=== PATIENT | male | born 1950 | race African-American/Black ===

== ENCOUNTER 2016-10-01 06:24 | Day surgery (SDC) | payer MEDICARE, OTHER ==
[2016-10-01] VITALS (9 sets, daily range): BP systolic 94–142; BP diastolic 49–84; PULSE 87–110; RESP 18–20; TEMP 98–98.2; O2SAT 92–99
[~2016-10-01] VITALS: Ht 180.3 cm; Wt 94.5 kg
[~2016-10-01 06:24] MED LIST: BUTO10SO; EXEN5PEN SQ; FLECTOR TOP; LANTUSP SQ; LIDO5T; LOTR5CAP3 PO; LYRI200C PO; OMEG1CAP53 PO; OMEP20TA PO; SPIR50TA21 PO; TESTIM; TOPR25TA2 PO; TRIA.1%T TOP
[2016-10-01] MEDS ORDERED: SODIUM CHLOR 0.9% 1000 ML IV SCH (06:45)
[2016-10-01] MEDS ORDERED: SODIUM CHLORIDE 0.9% FLUSH 10 ML FLUSH IV FLUSH PRN ×2 (06:45)
[2016-10-01] MEDS ORDERED: EMPA1TAB3 PO (06:51)
[2016-10-01] MEDS ORDERED: THIA100T PO (06:51)
[2016-10-01] MEDS ORDERED: LINA290C PO (06:51)
[2016-10-01] MEDS ORDERED: MIRT1TAB PO (06:51)
[2016-10-01] MEDS ORDERED: AMLO10CA PO (06:51)
[2016-10-01] MEDS ORDERED: LANTINJ SQ (06:51)
[2016-10-01] MEDS ORDERED: VENL75TA PO (06:51)
[2016-10-01] MEDS ORDERED: VIAG100T PO (06:51)
[2016-10-01] MEDS ORDERED: ASPI-119 PO (06:51)
[2016-10-01] MEDS ORDERED: BUTO10SO NASAL (06:51)
[2016-10-01] MEDS ORDERED: ACAM1TAB5 PO (06:51)
[2016-10-01] MEDS ORDERED: NEXI40CA PO (06:51)
[2016-10-01] MEDS ORDERED: FOLI1TAB4 PO (06:51)
[2016-10-01] MEDS ORDERED: [UNRECOGNIZED DRUG - CODE] TOPICAL (06:51)
[2016-10-01] MEDS ORDERED: ERGO1CAP10 PO (06:51)
[2016-10-01] MEDS ORDERED: METO25TA3 PO (06:51)
[2016-10-01] MEDS ORDERED: FLUO0.05 TOPICAL (06:51)
[2016-10-01] MEDS ORDERED: ALA1CRE2 TOPICAL (06:51)
[2016-10-01] MEDS ORDERED: LYRI200C PO (06:51)
[2016-10-01] MEDS ORDERED: EZET1TAB8 PO (06:51)
[2016-10-01] MEDS ORDERED: LIDOCAINE 1%/EPINEPHrine 1:100,000 SOLN 20 ML VIAL ONE (07:37)
[2016-10-01] MEDS ORDERED: fentaNYL CITRATE 250 MCG/5 ML AMP ONE (07:55)
[2016-10-01] MEDS ORDERED: MIDAZOLAM HCL 5 MG/5 ML VIAL ONE (07:55)
--- NOTE | 2016-10-01 09:05 | RADRPT ---
EXAM DATE/TIME: 10/01/2016 08:02 [facility] COMPARISON: No previous studies available for comparison. INDICATIONS : Elevated liver enzymes. SEDATION TIME: 30 minutes BIOPSY SITE: Right MEDICATION(S): 1.) 2 mg midazolam (Versed) IV 2.) 100 mcg fentanyl (Sublimaze) IV DEVICE(S): 1.) 18 gauge BioPince needle MEDICAL HISTORY : Cardiovascular disease. Hypertension. Lupus. Diabetes, prostate cancer. SURGICAL HISTORY : Prostatectomy. ENCOUNTER: Initial ACUITY: 1 day PAIN SCORE: 0/10 LOCATION: Right A total of one core specimen(s) were obtained and sent to the laboratory for pathologic evaluation. PROCEDURE: 1. CT guided liver biopsy. 2. Conscious sedation with continuous EKG and oximetry monitoring. 3. EKG and oximetry remained stable throughout the procedure. Prior to the procedure informed consent was obtained. Any appropriate prior imaging studies were rev iewed. Using automated exposure control and adjustment of the mA and/or kV according to patient size, radiat ion dose was kept as low as reasonably achievable to obtain optimal diagnostic quality images. The site was prepped in a sterile fashion. Full sterile technique was used, including cap, mask, vivian rile gloves and gown and a large sterile sheet. Hand hygiene and 2% chlorhexidine and/or betadine/al cohol prep was utilized per protocol for cutaneous antisepsis. The skin and subcutaneous tissues wer e infiltrated with local anesthetic solution. With CT guidance the previously identified target was localized. Biopsy was performed using the presc ribed needle as above. Adequate hemostasis was obtained with compression at the puncture site. Follow-up CT scan reveals no hemorrhage. The patient tolerated the procedure well and there were no complications. The patient was returned to the Radiology Outpatient Unit in stable condition. CONCLUSION: Uncomplicated CT guided biopsy liver biopsy for function.. Ron Mathews MD FACR on October 01, 2016 at 8:30 Board Certified Radiologist. This report was verified electronically.
== END 2016-10-01 12:50 | disposition home or self-care (01) ==
LOC: HRAD 06:24 → HRIP 06:25 → HRAD 12:50
PROVIDERS: ATTEND Internal Medicine Gastroenterology
DX: R74.8 Abnormal levels of other serum enzymes (principal); K75.81 Nonalcoholic steatohepatitis (NASH); K74.60 Unspecified cirrhosis of liver; I10 Essential (primary) hypertension; M32.9 Systemic lupus erythematosus, unspecified; E11.9 Type 2 diabetes mellitus without complications; Z85.46 Personal history of malignant neoplasm of prostate
CPT/HCPCS: 47000; 77012; 88307; 88313; J2250; J3010; J7030

== ENCOUNTER 2017-08-25 20:04 | Observation (INO) | payer MEDICARE, OTHER ==
[~2017-08-25] VITALS: Ht 180.3 cm; Wt 91.4 kg
[2017-08-25 20:03] VITALS: O2SAT 98
[~2017-08-25 20:04] MED LIST changes: +ACAM1TAB5 PO; +ALA1CRE2 TOPICAL; +AMLO10CA PO; +ASPI-119 PO; -BUTO10SO; +BUTO10SO NASAL; +EMPA1TAB3 PO; +ERGO1CAP10 PO; -EXEN5PEN SQ; +EZET1TAB8 PO; +FLUO0.05 TOPICAL; +FOLI1TAB4 PO; +LANTINJ SQ; +LINA290C PO; -LOTR5CAP3 PO; +METO25TA3 PO; +MIRT1TAB PO; +NEXI40CA PO; -OMEG1CAP53 PO; -OMEP20TA PO; -SPIR50TA21 PO; +THIA100T PO; -TOPR25TA2 PO; -TRIA.1%T TOP; +VENL75TA PO; +VIAG100T PO; +[UNRECOGNIZED DRUG - CODE] TOPICAL
[2017-08-25 20:07] VITALS: BP 120/71; RESP 24; TEMP 98.8; O2SAT 94
[2017-08-25] MEDS ORDERED: SODIUM CHLOR 0.9% 1000 ML INJ 1,000 ML IV ONE (20:09)
[2017-08-25] MEDS ORDERED: ALTEPLASE DRIP IV ONE (20:15)
[2017-08-25] MEDS ORDERED: SODIUM CHLORIDE 0.9% 50 ML BAG IVF ONE (20:15)
[2017-08-25] MEDS ORDERED: ALTEPLASE BOLUS 9 MG/9 ML SYR IV ONE (20:15)
[2017-08-25] MEDS ORDERED: MISCELLANEOUS NURSING INFORMATION XX PRN (20:15)
[2017-08-25 20:30] VITALS: BP 133/73; PULSE 73
--- NOTE | 2017-08-25 20:30 | RADRPT ---
EXAM DATE/TIME: 08/25/2017 20:15 [facility] COMPARISON: No previous studies available for comparison. INDICATIONS : Stroke alert, right side weakness, right side facial droop and slurred speech. RADIATION DOSE: 37.66 CTDIvol (mGy) This report was called by Dr. Peraza to Dr. Larkin at 8: 27 PM MEDICAL HISTORY : Non-responsive. SURGICAL HISTORY : Non-responsive. ENCOUNTER: Initial ACUITY: 1 day PAIN SCALE: Non-responsive LOCATION: cranial TECHNIQUE: Multiple contiguous axial images were obtained of the head. Using automated exposure control and adj ustment of the mA and/or kV according to patient size, radiation dose was kept as low as reasonably a chievable to obtain optimal diagnostic quality images. DICOM format image data is available electro nically for review and comparison. FINDINGS: CEREBRUM: The ventricles are normal for age. No evidence of midline shift, mass lesion, hemorrhage or acute in farction. No extra-axial fluid collections are seen. POSTERIOR FOSSA: The cerebellum and brainstem are intact. The 4th ventricle is midline. The cerebellopontine angle i s unremarkable. EXTRACRANIAL: The visualized portion of the orbits is intact. SKULL: The calvaria is intact. No evidence of skull fracture. CONCLUSION: Normal examination for a patient of this age. Asher Peraza MD on August 25, 2017 at 20:27 Board Certified Radiologist. This report was verified electronically.
[2017-08-25 20:31] LABS: AUTOMATED NEUTROPHIL # 2.1 TH/MM3 (1.8-7.7); BASOPHIL # 0.1 TH/MM3 (0-0.2); BASOPHIL % 1.2 % (0.0-2.0); EOSINOPHIL % 0.4 % (0.0-4.0); HEMATOCRIT 42.9 % (39.0-51.0); HEMOGLOBIN 14.4 GM/DL (13.0-17.0); LYMPH % 42.4 % (9.0-44.0); LYMPHOCYTE # 2.2 TH/MM3 (1.0-4.8); MEAN CELL VOLUME 99.9 FL (80.0-100.0); MEAN CORPUSCULAR HEMOGLOBIN 33.5 PG (27.0-34.0); MEAN CORPUSCULAR HGB CONC 33.5 % (32.0-36.0); MEAN PLATELET VOLUME 10.4 FL (7.0-11.0); MONO % 15.2 % (0.0-8.0); MONOCYTE # 0.8 TH/MM3 (0-0.9); NEUT % 40.8 % (16.0-70.0); PLATELET COUNT 115 TH/MM3 (150-450); RED CELL DISTRIBUTION WIDTH 15.7 % (11.6-17.2); WHITE BLOOD COUNT 5.2 TH/MM3 (4.0-11.0)
[2017-08-25] MEDS ORDERED: IOHEXOL 350 MG/ML 10 ML VIAL (for RAD DIAG) IVCONTRAST ONE (20:42)
[2017-08-25 20:45] VITALS: BP 137/84; PULSE 72; RESP 18; O2SAT 99
[2017-08-25] MEDS ORDERED: ASPIRIN 300 MG SUPP RECTAL ONE (21:00)
[2017-08-25] MEDS: ASPIRIN EC 325 MG TABEC PO SCH (21:00)
[2017-08-25] MEDS ORDERED: SODIUM CHLOR 0.9% 1000 ML INJ 1,000 ML IV SCH (21:00)
[2017-08-25 21:05] LABS: TROPONIN I LESS THAN 0.02 NG/ML (0.02-0.05)
--- NOTE | 2017-08-25 21:05 | RADRPT ---
EXAM DATE/TIME: 08/25/2017 20:20 [facility] COMPARISON: No previous studies available for comparison. INDICATIONS : Stroke alert, right side weakness, right side facial droop and slurred speech. IV CONTRAST: 100 cc Omnipaque 350 (iohexol) IV ; Cumulative dose for multiple exams. RADIATION DOSE: 28.60 CTDIvol (mGy) ; Combined studies MEDICAL HISTORY : Non-responsive. SURGICAL HISTORY : Non-responsive. ENCOUNTER: Initial ACUITY: 1 day PAIN SCALE: Non-responsive LOCATION: cranial TECHNIQUE: Volumetric scanning was performed using a multi-row detector CT scanner. The data was post processed with a variety of visualization algorithms including full volume maximum intensity projection, multi -planar sliding thin slab reformation, curved planar reformation, and surface rendering techniques. Using automated exposure control and adjustment of the mA and/or kV according to patient size, radiat ion dose was kept as low as reasonably achievable to obtain optimal diagnostic quality images. DICO M format image data is available electronically for review and comparison. FINDINGS: There is excellent visualization of the major intracranial arteries out to the second-order branch ve ssels. There is no evidence for aneurysm, vessel truncation or stenosis, and no evidence for vascula r malformation. CONCLUSION: Normal examination for a patient of this age. Asher Peraza MD on August 25, 2017 at 20:59 Board Certified Radiologist. This report was verified electronically.
--- NOTE | 2017-08-25 21:07 | RADRPT ---
EXAM DATE/TIME: 08/25/2017 20:20 [facility] COMPARISON: No previous studies available for comparison. INDICATIONS : Stroke alert, right side weakness, right side facial droop and slurred speech. IV CONTRAST: 100 cc Omnipaque 350 (iohexol) IV ; Cumulative dose for multiple exams. RADIATION DOSE: 28.60 CTDIvol (mGy) ; Combined studies MEDICAL HISTORY : Non-responsive. SURGICAL HISTORY : Non-responsive. ENCOUNTER: Initial ACUITY: 1 day PAIN SCALE: Non-responsive LOCATION: cranial Elevated flow velocities and ICA/CCA ratios have been found to correlate with increased degrees of vessel stenosis, calculated as percentage of diameter relative to a normal segment of distal ICA/CCA. TECHNIQUE: Volumetric scanning was performed using a multirow detector CT scanner. The data was post processed with a variety of visualization algorithms including full-volume maximum intensity projection, multip lanar sliding thin-slab reformation, curved-planar reformation, and surface-rendering techniques. Us ing automated exposure control and adjustment of the mA and/or kV according to patient size, radiatio n dose was kept as low as reasonably achievable to obtain optimal diagnostic quality images. DICOM f ormat image data is available electronically for review and comparison. FINDINGS: AORTIC ARCH: There is a three-vessel origin of the great vessels from the aorta. No evidence of ostial narrowing. RIGHT CAROTID: The common carotid artery is intact. The carotid bulb has a normal configuration without ulceration o r narrowing. The internal carotid artery lumen is smooth without stenosis. The external carotid sigrid ry is intact. LEFT CAROTID: The common carotid artery is intact. The carotid bulb has a normal configuration without ulceration or narrowing. The internal carotid artery lumen is smooth without stenosis. The external carotid ar ramin is intact. VERTEBRALS: The vertebral arteries have a symmetric diameter. No stenotic lesions are seen. CONCLUSION: Normal examination for a patient of this age. Asher Peraza MD on August 25, 2017 at 21:02 Board Certified Radiologist. This report was verified electronically.
[2017-08-25 21:12] LABS: INTERNATIONAL NORMALIZED RATIO 1.3 RATIO; PROTHROMBIN TIME - PATIENT 12.7 SEC (9.8-11.6)
[2017-08-25 21:22] LABS: BILIRUBIN, URINE NEG (NEG); BLOOD, URINE NEG (NEG); GLUCOSE,URINE 1000 mg/dL (NEG); KETONE, URINE NEG (NEG); MUCUS URINE FEW /lpf (OCC); NITRITE,URINE NEG (NEG); PH, URINE 5.5 (5.0-8.5); URINE COLOR YELLOW (YELLW/STRAW); URINE LEUKOCYTE ESTERASE NEG (NEG)
[2017-08-25] MEDS: SODIUM CHLOR 0.9% 1000 ML INJ 1,000 ML IV SCH (21:28)
--- NOTE | 2017-08-25 21:42 | MB ---
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 Evidently on some medication for that. Prostate cancer, remote. He has passed out a few times with low blood sugar in the past, but never admitted before to [facility]. A stroke alert was called at 8:05 p.m. About an hour earlier, his had seen him doing well and then he walked into the computer room and then a half an hour after that she went in and found that he was not talking and he was brought in. The ER doctor felt that he could not move his right leg, he was weak on the right side. His head seemed to be moving back and forth, but no seizure activity. SOCIAL HISTORY: He is not a smoker. He is a very heavy drinker. Lives with his . FAMILY HISTORY: Negative for cancer, seizure or stroke. MEDICATIONS: We do not have a med list right now, but he is not taking aspirin or any blood thinners or Coumadin, according to his . PHYSICAL EXAMINATION: VITAL SIGNS: Afebrile, 120/70 and 124/94. He has been in sinus rhythm. NECK: There were no carotid bruits. HEART: Regular rhythm. I did not detect a murmur. NEUROLOGIC: Pupils are equal. Visual allison are full. Extraocular movements are intact. A little bit of nystagmus, which I think is alcohol related. Tongue was midline. Face is symmetric. He says he is numb on both sides of his face. He had normal strength in upper and lower extremities bilaterally. DTRs are 1+, symmetric throughout. Toes downgoing bilaterally. Pinprick, he can feel in his hands and feet, but not on his face bilaterally, he tells me. He can name and repeat. He knows the year. His speech is a little slurred, appears to be alcohol intoxication. His NIH stroke scale is zero at this time. LABORATORY DATA: His UA is pending. Toxicology is pending. Basic metabolic profile was normal. Troponin is pending. Creatinine 1.1. Coags are pending. CBC is normal. CAT scan of the brain was negative. CTA of the neck and hopi of [place] are pending, but I did review them. I did not see anything preliminary on the CT scanner. ASSESSMENT AND PLAN: It is unclear if he had a transient ischemic attack. We will give him some aspirin here. Certainly alcohol intoxicated now, but the ER doctor did think he was weak on the right leg for a time. We will keep his head of bed flat. IV hydration. Give him an aspirin now. He did not get tPA as it appears he has had a full recovery. MD ARIELLE GironM/SA/ , 08:57 PM , 09:25 PM
[2017-08-25] MEDS ORDERED: ACAM1TAB5 PO (21:43)
[2017-08-25] MEDS ORDERED: VITA100T54 PO (21:43)
[2017-08-25] MEDS ORDERED: EZET1TAB8 PO (21:43)
[2017-08-25] MEDS ORDERED: AMLO10CA PO (21:43)
[2017-08-25] MEDS ORDERED: LYRI200C PO (21:43)
[2017-08-25] MEDS ORDERED: HYDR1CRE TOPICAL (21:43)
[2017-08-25] MEDS ORDERED: [UNRECOGNIZED DRUG - CODE] (21:43)
[2017-08-25] MEDS ORDERED: LINA290C PO (21:43)
[2017-08-25] MEDS ORDERED: VIAG100T PO (21:43)
[2017-08-25] MEDS ORDERED: VENL75TA PO (21:43)
[2017-08-25] MEDS ORDERED: LANTUS2P SQ (21:43)
[2017-08-25] MEDS ORDERED: BECL80AE NASAL (21:43)
[2017-08-25] MEDS ORDERED: EMPA1TAB3 PO (21:43)
[2017-08-25] MEDS ORDERED: BUTO10SO NASAL (21:43)
[2017-08-25] MEDS ORDERED: METO25TA3 PO (21:43)
[2017-08-25] MEDS ORDERED: FOLI400T PO (21:43)
[2017-08-25] MEDS ORDERED: ASPI81CH6 CHEW (21:43)
[2017-08-25] MEDS ORDERED: VITA1000 PO (21:43)
[2017-08-25 22:01] VITALS: BP 131/77; PULSE 68; RESP 16; O2SAT 95
[2017-08-25 22:40] LABS: RHEUMATOID FACTOR SCREEN NEGATIVE (NEGATIVE)
[2017-08-25] MEDS ORDERED: POTASSIUM CHLORIDE 20 MEQ CONTROLLED RELEASE TAB PO ONE (22:45)
[2017-08-25] MEDS ORDERED: SODIUM CHLORIDE 0.9% FLUSH 10 ML FLUSH IV FLUSH PRN (22:45)
[2017-08-25] MEDS ORDERED: LORazepam 2 MG/ML VIAL IV PUSH PRN ×4 (22:45)
[2017-08-25] MEDS ORDERED: NALOXONE HCL 0.4 MG/ML AMP IV PUSH PRN (22:45)
[2017-08-25] MEDS ORDERED: LORazepam 1 MG TAB PO PRN (22:45)
[2017-08-25] MEDS ORDERED: LORazepam 2 MG TAB PO PRN (22:45)
[2017-08-25] MEDS ORDERED: FLUMAZENIL 0.5 MG/5 ML VIAL IV PUSH PRN (22:45)
--- NOTE | 2017-08-25 23:05 | PD ---
HPI Chief Complaint: Stroke Alert Time Seen by Provider: 20:07 Travel History International Travel<30 days: No Contact w/Intl Traveler<30days: No Traveled to known affect area: No History of Present Illness HPI Patient is a 66-year-old male who today was home had 2 glasses of wine according to she arrived he was mildly intoxicated then he walked into his study and set half an hour later she came in and found him unresponsive right- sided paralysis paramedics were called. Patient was transported BP is 129/60 he is not responding he is aphasic he has right leg weakness right arm weakness and is not answering questions his eyes are open however he is having bizarre posturing from side to side with his head there is not a lateralization specifically however the right arm right leg are weak. He is presenting as an ischemic stroke and he is called from paramedics in the field as a stroke note immediately he is not labs are placed neuro exam shows a right-sided paralysis and a mild right-sided facial droop but he is moving his head across midline and his eyes are moving back and forth across midline. CT is ordered on the CAT scan there is no bleed the idea of TPA is considered I discussed the case with Dr. Coburn and CTA head and neck are done as well and [place] on the way back from the CAT scanner where as we prepared the seat TPA the patient now was awake more alert right arm is back to normal left right leg is much more improved 4 out [address] Coburn appears bedside there is no indication for doing TPA at this time. Patient is admitted after giving him aspirin and fluid and Dr. Coburn decides TPA is not indicated I agree and patient will be admitted for observation to telemetry [facility] Past Medical History Cancer: Yes (PROSTATE) Diabetes: Yes Patient Takes Glucophage: No Hypertension: Yes Medical other: Yes (FATTY LIVER, LUPUS) Past Surgical History Body Medical Devices: pain stimulator st yvonne id [id number] implant date Cholecystectomy: Yes Social History Alcohol Use: Yes Tobacco Use: Yes Substance Use: Yes (MEDICAL MARIJUANA) Allergies-Medications (Allergen,Severity, Reaction): Coded Allergies: MRI PRECAUTION (Verified Allergy, Unknown, 08/25/17) [facility] yvonne medical poweroveryourpain id [id number] Reported Meds & Prescriptions Reported Meds & Active Scripts Active Reported Vitamin D-1000 (Cholecalciferol) 1,000 Unit Tab 50,000 Units PO TWICE WEEK Viagra (Sildenafil Citrate) 100 Mg Tab 100 Mg PO DAILY PRN Effexor (Venlafaxine HCl) 75 Mg Tab 75 Mg PO DAILY Vitamin B-1 (Thiamine HCl) 100 Mg Tab 100 Mg PO DAILY Qnasl Nasal (Beclomethasone Nasal) 80 Mcg/Act Aero 2 Mckee NASAL DAILY To each nostril. Metoprolol Tartrate 25 Mg Tab 25 Mg PO BID Lyrica (Pregabalin) 200 Mg Cap 200 Mg PO BID Linzess (Linaclotide) 290 Mcg Cap 290 Mcg PO DAILY Lantus Inj (Insulin Glargine) 1,000 Unit/10 Ml Vial 34 Units SQ HS Jardiance (Empagliflozin) 25 Mg Tab 25 Mg PO DAILY Hydrocortisone Topical 1% Cream 1 Applic TOPICAL BID Folic Acid 0.4 Mg Tab 1 Mg PO DAILY Ezetimibe 10 Mg Tab 10 Mg PO HS Evoclin (Clindamycin Phosphate (Topical) 1 % Aer 10 Mg BID Butorphanol Nasal Mckee (Butorphanol Tartrate) 10 Mg/Ml Soln 1 Mckee NASAL Q4HR PRN in one nostril (1 mg). If pain not reliefed in 60-90 minutes, a 1 mg repeat dose may be given. May repeat this in 3-4 hrs if needed. Amlodipine-Benazepril 10-20 Mg Cap 1 Cap PO DAILY Acamprosate DR 333 Mg Tab 333 Mg PO TID Review of Systems ROS Limitations: Altered Mental Status, Speech Impaired (CVA aphasic at this time for initial ROS unable to be obtained) Physical Exam Narrative GENERAL: pt is globally unresponsive eyes are open he is aphasic SKIN: Warm and dry. HEAD: Atraumatic. Normocephalic. No signs of trauma EYES: Pupils equal and round. No scleral icterus. No injection or drainage. Pupils are 2 mm pinpoint bilateral he has a dark iris with a blue halo bilateral ENT: No nasal bleeding or discharge. Mucous membranes pink and moist. Patient appears to be protecting his airway at this time intubation is not indicated NECK: Trachea midline. No JVD. CARDIOVASCULAR: Regular rate and rhythm. RESPIRATORY: No accessory muscle use. Clear to auscultation. Breath sounds equal bilaterally. GASTROINTESTINAL: Abdomen soft, non-tender, nondistended. Hepatic and splenic margins not palpable. MUSCULOSKELETAL: Extremities: right sided weakness R arm 1 out of 5 and theR leg is 0 out of 5 . NEUROLOGICAL: NIH stroke scale is calculated to be 20 Data Data Last Documented VS Vital Signs Date Time Temp Pulse Resp B/P (MAP) Pulse Ox O2 Delivery O2 Flow Rate FiO2 08/25/17 22:01 68 16 131/77 (95) 95 Room Air 08/25/17 20:07 98.8 08/25/17 20:03 4.00 Orders Orders Activity Bed Rest (08/25/17 ) Electrocardiogram (08/25/17 ) I-Stat Profile (08/25/17 20:09) Prothrombin Time / Inr (Pt) (08/25/17 20:09) Act Partial Throm Time (Ptt) (08/25/17 20:09) Complete Blood Count With Diff (08/25/17 20:09) Fibrinogen (08/25/17 20:09) Creatine Kinase (Cpk) (08/25/17 20:09) Troponin I (08/25/17 20:09) Ua Includes Microscopic (08/25/17 20:09) Drug Screen, Random Urine (08/25/17 20:09) Ct Brain W/O Iv Contrast(Rout) (08/25/17 ) Cta Brain W Iv Contrast W 3d (08/25/17 20:09) Cta Neck W Iv Contrast W 3d (08/25/17 20:09) Consult Neurology (08/25/17 ) Blood Glucose (08/25/17 20:09) Ecg Monitoring (08/25/17 20:09) Neuro Checks Q2HX12,Q4H (08/25/17 20:09) Nursing Bedside Swallow Assess .ONCE (08/25/17 20:09) Iv Access Insert/Monitor (08/25/17 20:09) NPO (08/25/17 20:09) Oximetry (08/25/17 20:09) Resp Oxygen Nc Stroke (08/25/17 ) Sodium Chlor 0.9% 1000 Ml Inj (Ns 1000 M (08/25/17 20:09) Cath For Specimen (08/25/17 20:09) ^ Call Pharmacy (08/25/17 20:11) Nih Stroke Scale - Nihss .ONCE (08/25/17 20:11) Urinary Catheter Insert/Apply (08/25/17 20:11) Anticoagulant Alert (08/25/17 20:11) ^ Post Infusion Restrictions (08/25/17 20:11) ^ Medication Alert (08/25/17 20:11) Vital Signs (Adult) .As directed (08/25/17:11) Notify Dr: Blood Pressure (08/25/17 20:11) ^ Medication Alert (08/25/17 20:11) Alteplase Bolus (Activase Bolus) (08/25/17 20:15) Alteplase Drip (Activase Drip) (08/25/17 20:15) Sodium Chloride 0.9% Inj (Ns Inj) (08/25/17 20:15) Misc Nursing Information (08/25/17 20:15) Resp Oxygen Nc Stroke (08/25/17 ) Iohexol 350 Inj (Omnipaque 350 Inj) (08/25/17 20:42) Westergren Sedimentation Rate (08/25/17 20:53) Rapid Plasma Regin (Rpr) W Ttr (08/25/17 20:53) Yasmine Screen (08/25/17 20:53) Thyroid Stimulating Hormone (08/25/17 20:53) Free Thyroxine (T4) (08/25/17 20:53) Vitamin B1 (Thiamine) (08/25/17 20:53) Vitamin B12 (08/25/17 20:53) Rheumatoid Screen/Titer (Rf) (08/25/17 20:53) C-Reactive Protein (Crp) (08/25/17 20:53) Methylmalonic Acid (Mma) (08/25/17 20:53) Ammonia (08/25/17 20:53) Ast (Sgot) (08/25/17 20:53) Alt (Sgpt) (08/25/17 20:53) Eeg Study (08/25/17 20:53) Holter Monitor Recording (08/25/17 20:53) Human Geography Instructor / Telemetry EFRAÍN.Q8H (08/25/17 20:53) ^ Seizure Precautions (08/25/17 20:53) [place] (08/25/17 20:53) ^ Other Nursing Orders (08/25/17 20:53) Aspirin Ec (Ecotrin Ec) (08/25/17 21:00) Sodium Chlor 0.9% 1000 Ml Inj (Ns 1000 M (08/25/17 20:53) Lipid Profile (08/25/17 20:53) Scd&Teds Bilateral/Knee High EFRAÍN.QSHIFT (08/25/17 20:53) Sodium Chlor 0.9% 1000 Ml Inj (Ns 1000 M (08/25/17 21:00) Aspirin Supp (Aspirin Supp) (08/25/17 21:00) Place In Observation (08/25/17 ) Vital Signs (Adult) Q4H (08/25/17:32) Neuro Checks Q4H (08/25/17:32) Activity Oob With Assistance (08/25/17:32) Human Geography Instructor / Telemetry .CONTINUOUS (08/25/17:32) Diet Heart Healthy (08/26/17 Breakfast) Sodium Chloride 0.9% Flush (Ns Flush) (08/25/17 22:45) Sodium Chloride 0.9% Flush (Ns Flush) (08/26/17 09:00) Basic Metabolic Panel (Bmp) (08/26/17 06:00) Complete Blood Count With Diff (08/26/17 06:00) Pt Request For Service (08/25/17 22:32) Case Management Consult (08/25/17:32) Naloxone Inj (Narcan Inj) (08/25/17 22:45) Flumazenil Inj (Romazicon Inj) (08/25/17 22:45) Lorazepam (Ativan) (08/25/17 22:45) Lorazepam Inj (Ativan Inj) (08/25/17 22:45) Lorazepam (Ativan) (08/25/17 22:45) Lorazepam Inj (Ativan Inj) (08/25/17 22:45) Lorazepam Inj (Ativan Inj) (08/25/17 22:45) Lorazepam Inj (Ativan Inj) (08/25/17 22:45) ^ Seizure Precautions (08/25/17:32) Potassium Chloride (Kcl) (08/25/17 22:45) Alcohol (Ethanol) (08/25/17 21:20) Admit Order (Ed Use Only) (08/25/17 22:37) Lipid Profile (08/26/17 06:00) Echo 2d Comp With Doppler (08/26/17 20:53) Labs Laboratory Tests Test 08/25/17 20:10 08/25/17 20:30 08/25/17 21:20 White Blood Count 5.2 TH/MM3 Red Blood Count 4.30 MIL/MM3 Hemoglobin 14.4 GM/DL Bedside Hemoglobin 15.3 G/DL Hematocrit 42.9 % Bedside Hematocrit 45.0 % Mean Corpuscular Volume 99.9 FL Mean Corpuscular Hemoglobin 33.5 PG Mean Corpuscular Hemoglobin Concent 33.5 % Red Cell Distribution Width 15.7 % Platelet Count 115 TH/MM3 Mean Platelet Volume 10.4 FL Neutrophils (%) (Auto) 40.8 % Lymphocytes (%) (Auto) 42.4 % Monocytes (%) (Auto) 15.2 % Eosinophils (%) (Auto) 0.4 % Basophils (%) (Auto) 1.2 % Neutrophils # (Auto) 2.1 TH/MM3 Lymphocytes # (Auto) 2.2 TH/MM3 Monocytes # (Auto) 0.8 TH/MM3 Eosinophils # (Auto) 0.0 TH/MM3 Basophils # (Auto) 0.1 TH/MM3 CBC Comment DIFF FINAL Differential Comment Prothrombin Time 12.7 SEC Prothromb Time International Ratio 1.3 RATIO Activated Partial Thromboplast Time 27.8 SEC Fibrinogen 261 mg/dL Bedside Sodium 144 MMOL/L Bedside Potassium 3.5 MMOL/L Bedside Chloride 106 MMOL/L Bedside Blood Urea Nitrogen 20 MG/DL Bedside Creatinine 1.1 MG/DL Bedside Glucose 90 MG/DL Total Creatine Kinase 158 U/L Troponin I LESS THAN 0.02 NG/ML Urine Color YELLOW Urine Turbidity CLEAR Urine pH 5.5 Urine Specific [place] 1.018 Urine Protein NEG mg/dL Urine Glucose (UA) 1000 mg/dL Urine Ketones NEG mg/dL Urine Occult Blood NEG Urine Nitrite NEG Urine Bilirubin NEG Urine Urobilinogen 2.0 MG/DL Urine Leukocyte Esterase NEG Urine Mucus FEW /lpf Urine Opiates Screen NEG Urine Barbiturates Screen NEG Urine Amphetamines Screen NEG Urine Benzodiazepines Screen NEG Urine Cocaine Screen NEG Urine Cannabinoids Screen POS Erythrocyte Sedimentation Rate 46 mm/hr Aspartate Amino Transf (AST/SGOT) 130 U/L Alanine Aminotransferase (ALT/SGPT) 79 U/L Ammonia 37 MCMOL/L C-Reactive Protein 1.50 MG/DL Triglycerides Level 118 MG/DL Cholesterol Level 188 MG/DL LDL Cholesterol 106 MG/DL HDL Cholesterol 58.7 MG/DL Cholesterol/HDL Ratio 3.20 RATIO Vitamin B12 Level 414 PG/ML Free Thyroxine 0.92 NG/DL Thyroid Stimulating Hormone 3rd Gen 0.840 uIU/ML Ethyl Alcohol Level 295 MG/DL Rheumatoid Factor Screen NEGATIVE Rheumatoid Factor Titer IU/ML Anti-Nuclear Antibody Screen POS Anti-Nuclear Antibody Titer 1:80 Anti-Nuclear Antibody Pattern DIFFUSE Anti-Nuclear Antibody Interpret Rapid Plasma Reagin NON-REACTIVE MDM Medical Decision Making Medical Screen Exam Complete: Yes Emergency Medical Condition: Yes Differential Diagnosis Differential diagnosis includes ischemic stroke versus Pj's paralysis versus alcohol intoxication versus traumatic head bleed versus cerebellar injury versus other versus intracranial hemorrhage Narrative Course repeat exam normalized after CT and it appears that pt is intoxicated and possibly post ictal , Dr Irish angel feels tPa not indicated and I completely agree . pt has resolving presentation of right sided paralysis. his face and eyes and head movements were inconsistent with the right sided paralysis , pt is now able to fully move his R leg5 /5 and his right arm 5/5 and talking in full sentences and no focal deficits Admit pt will be given ASPIRIN and NS IV hydration Critical Care Narrative 30 stroke alert treatment critical care time 30 minutes Diagnosis Primary Impression: TIA (transient ischemic attack) Qualified Codes: G45.9 - Transient cerebral ischemic attack, unspecified Additional Impression: Alcohol intoxication Qualified Codes: F10.929 - Alcohol use, unspecified with intoxication, unspecified Admitting Information Admitting Physician Requests: Admit Scripts Aspirin (Aspirin EC) 81 Mg Tabdr 81 MG PO DAILY for Stroke Prevention for 30 Days, #30 TAB 0 Refills Prov: Naz Sanchez PA-C 08/27/17 Rajeev Larkin MD Aug 25, 2017 23:05
[2017-08-25 23:22] LABS: C-REACTIVE PROTEIN 1.5 MG/DL (0.00-0.30); CHOLESTEROL/ HDL RATIO 3.2 RATIO; FREE T4 0.92 NG/DL (0.76-1.46); HDL CHOLESTEROL 58.7 MG/DL (40.0-60.0)
[2017-08-25 23:47] VITALS: BP 115/61
[2017-08-26] VITALS (10 sets, daily range): BP systolic 106–162; BP diastolic 59–84; PULSE 64–86; RESP 16–20; TEMP 97.5–98.4; O2SAT 95–100
[2017-08-26] MEDS: SODIUM CHLOR 0.9% 1000 ML INJ 1,000 ML IV SCH (04:22)
[2017-08-26] MEDS ORDERED: DEXTROSE 50% IN WATER 50 ML VIAL(D50) IV PUSH PRN (05:30)
[2017-08-26] MEDS ORDERED: GLUCAGON 1 MG/ML VIAL OTHER PRN (05:30)
[2017-08-26] MEDS: DEXT 5%-NACL 0.9% 1000 ML INJ 1,000 ML IV SCH ×2 (05:38→19:48)
--- NOTE | 2017-08-26 06:51 | HHI.PR ---
Subjective Remarks sr overnoc Objective Vital Signs Date Time Temp Pulse Resp B/P (MAP) Pulse Ox O2 Delivery O2 Flow Rate FiO2 08/26/17 04:24 97.5 73 16 108/59 (75) 98 08/26/17 00:32 97.6 77 16 106/69 (81) 100 08/25/17 23:47 75 16 115/61 (79) 94 08/25/17 22:01 68 16 131/77 (95) 95 Room Air 08/25/17 20:45 72 18 137/84 (101) 99 Room Air 08/25/17 20:30 73 133/73 (93) 08/25/17 20:07 98.8 24 120/71 (87) 94 08/25/17 20:03 98 Nasal Cannula 4.00 08/25/17 20:03 98 4.00 I/O 08/25/17 08/25/17 08/25/17 08/26/17 08/26/17 08/26/17 07:00 15:00 23:00 07:00 15:00 23:00 Output Total 1400 ml Balance -1400 ml Output Urine Total 1400 ml Result Diagram: 08/25/172009 Other Results awake alert clear speech 5/5 t/o vff face sym Assessment and Plan Assessment and Plan imp ct/cta x 2 neg labs ok recheck ldl lft up etoh on asa ok to dc on asa if mri neg and echo nl fu holter recheck fasting ldl now as not great statin candidate with inc lft Rakesh Coburn MD Aug 26, 2017 06:51
[2017-08-26 07:51] LABS: AUTOMATED NEUTROPHIL # 1.9 TH/MM3 (1.8-7.7); BASOPHIL % 0.8 % (0.0-2.0); EOSINOPHIL % 0.8 % (0.0-4.0); HEMATOCRIT 39.4 % (39.0-51.0); HEMOGLOBIN 13.2 GM/DL (13.0-17.0); LYMPH % 39.3 % (9.0-44.0); LYMPHOCYTE # 1.5 TH/MM3 (1.0-4.8); MEAN CORPUSCULAR HEMOGLOBIN 33.2 PG (27.0-34.0); MEAN CORPUSCULAR HGB CONC 33.6 % (32.0-36.0); MONO % 11.4 % (0.0-8.0); MONOCYTE # 0.4 TH/MM3 (0-0.9); NEUT % 47.7 % (16.0-70.0); PLATELET COUNT 123 TH/MM3 (150-450); RED BLOOD COUNT 3.98 MIL/MM3 (4.50-5.90); RED CELL DISTRIBUTION WIDTH 15.9 % (11.6-17.2); WHITE BLOOD COUNT 3.9 TH/MM3 (4.0-11.0)
[2017-08-26 08:18] LABS: BICARBONATE 25.7 MEQ/L (21.0-32.0); CALCIUM 7.5 MG/DL (8.5-10.1); CREATININE 0.73 MG/DL (0.60-1.30)
[2017-08-26 08:20] LABS: CHOLESTEROL/ HDL RATIO 3.2 RATIO
--- NOTE | 2017-08-26 09:52 | MH ---
cc: London Mondragon MD DATE OF ADMISSION: 08/25/2017 CHIEF COMPLAINT: Stroke alert. HISTORY OF PRESENT ILLNESS: Amado Mccord is a 66-year-old male whom I see in my office. He tells me he had a few shots yesterday with his friends and then that is all that he remembers. He remembers awakening in the emergency room at some point last night. His found him unresponsive with right sided hemiparesis. EMS was called and he was aphasic and the right hemiparesis continued. A stroke alert was called. CT showed no bleed and the emergency room physician called Dr. Coburn and they decided not to do TPA as he was improving. Dr. Coburn quickly showed up and further confirmed that he did not need TPA. He was given aspirin and IV fluids and was called for admission for rule out ischemic stroke versus Pj's paralysis, intracranial hemorrhage or cerebellar injury or simply alcohol intoxication. PAST MEDICAL HISTORY: 1. Prostate cancer. 2. Diabetes. 3. Hypertension. 4. LOPEZ. PAST SURGICAL HISTORY: 1. St. Eyad pain stimulator. 2. Cholecystectomy. SOCIAL HISTORY: Alcohol socially. He is a smoker and uses marijuana medicinally. ALLERGIES: MRI negative. MEDICATIONS: Vitamin D, Viagra, Effexor, vitamin B, beclomethasone nasal, metoprolol tartrate 25 mg twice a day, Lyrica 200 twice a day, Linzess 200 mcg daily, Lantus 34 units at bedtime, empagliflozin 25 mg daily, folic acid, Zetia, topical clindamycin, Butorphanol nasal spray p.r.n., aspirin 81 mg, amlodipine, benazepril, acamprosate 330 mg t.i.d. REVIEW OF SYSTEMS: Initially with altered mental status and right hemiparesis and aphasia and some alterations in movements and he has gradually improved and now I am seeing him in the emergency room and he is exhibiting no symptoms other than states that he feels a bit hung over and a bit weak. He appears at his baseline. Negative 12-point review of systems otherwise. LABORATORY DATA: WBC 3.9, platelets 123. Sodium 147, calcium 7.5, triglycerides 189, AST 130, ALT 79, ammonia 37. There is glucosuria and positive THC and ethyl alcohol of 295, RF negative, ALEAH pending. RPR is pending. Head CT shows normal examination for his age. Neck CTA is normal. Repeat head CT appears normal. PHYSICAL EXAMINATION: VITALS: Temperature 97.5, pulse 73, respirations 18, blood pressure 108/59, pulse ox 98% on room air. GENERAL: He is an alert, male. He is lying flat with nasal cannula O2. He is happy and conversive and recognizes me. HEENT: Oropharynx is clear. Carotids are clear. Normocephalic, atraumatic. PERRLA. NECK: No JVD. CHEST: Clear. CARDIOVASCULAR: Regular rate and rhythm. No murmurs, rubs, clicks, or gallops. ABDOMEN: Soft, nontender. No rebound, no guarding. EXTREMITIES: No edema. Skin is clear. NEUROLOGIC: Alert and oriented x 3. Cranial nerves are intact. Sensation is intact in all dermatomes. Deep tendon reflexes are 2+. Strength is 5/5 in the upper and lower extremities. ASSESSMENT: 1. Altered mental status with stroke-like symptoms. 2. Possible TIA. 3. Alcohol intoxication. 4. Insulin-dependent diabetes. 5. Fatty liver. 6. Elevated LFTs. 7. Hypertension. 8. Lupus. 9. Prostate cancer. 10. Hypoglycemia. 11. Alcoholism. PLAN: 1. Admit to observation. 2. Holter monitor. 3. Echocardiogram. 4. Neurology consulted and has seen the patient. 5. Head of bed flat. 6. D5 normal saline. IV fluids as he has been hypoglycemic. 7. Aspirin 325 daily and he received a rectal aspirin. 8. CIWA protocol. 9. Bedrest. 10. Telemetry. 11. Neuro checks. 12. SCDs and TEDs. 13. Physical therapy. 14. 50 minutes spent with the patient, 35 minutes of which was documentation in counseling and coordination of care. Possibly the patient will be able to go home today if we get a read on the echocardiogram. London Mondragon MD RDP/DL , 09:20 AM , 09:50 AM TYE
[2017-08-26] MEDS: ASPIRIN EC 325 MG TABEC PO SCH (10:14)
[2017-08-26] MEDS: SODIUM CHLORIDE 0.9% FLUSH 10 ML FLUSH IV FLUSH SCH ×2 (10:15→19:52)
[2017-08-26] MEDS: LACTULOSE SYRUP 20 GM/30 ML CUP PO SCH (10:15)
[2017-08-26 16:44] LABS: ANA SCREEN POS (NEG)
--- NOTE | 2017-08-26 17:54 | MG ---
cc: Rod Thrasher MD DATE OF EE08/26/2017 REFERRING PHYSICIAN: Dr. Coburn. INDICATION: An EEG was obtained this 66-year-old patient. Apparent altered mentation. DESCRIPTION: The patient is described as awake during the study. The EEG shows some 8-10 per second alpha rhythms posteriorly. There are beta rhythms diffusely. At times, there is some intermixed theta activity and rare delta rhythms. No consistent lateralizing features. No paroxysmal discharges. Photic stimulation was unremarkable. INTERPRETATION: Probably normal awake and drowsy electroencephalogram. Rod Thrasher MD OFC/KD , 05:41 PM , 05:53 PM
--- NOTE | 2017-08-26 19:34 | EKG ---
Date Performed: 08/25/2017 Time Performed: 21:16:02 PTAGE: 66 years EKG: NORMAL Sinus rhythm WITH REPOLARIZATION ABNORMALITY CONSIDER PERICARDITIS MODERATE VOLTAGE CRITERIA FOR LVH, CONSIDER NO RMAL VARIANT ABNORMAL RHYTHM ECG NO PREVIOUS TRACING DOCTOR: Karl Oliver Interpretating Date/Time 08/26/2017 19:34:14
--- NOTE | 2017-08-26 19:58 | ECHRPT ---
Indication: cva/tia CONCLUSIONS The left ventricular systolic function is hyperdynamic with an estimated ejection fraction in the ra nge of 65- 70%. Doppler parameters are consistent with impaired left ventricular relaxtion (grade 1 diastolic dysfun ction). BP: 108 / 59 HR: 73 Rhythm: Sinus MEASUREMENTS (Male / Female) Normal Values Technical Quality:Good 2D ECHO LV Diastolic Diameter PLAX 4.1 cm 4.2 - 5.9 / 3.9 - 5.3 cm LV Systolic Diameter PLAX 2.6 cm IVS Diastolic Thickness 1.1 cm 0.6 - 1.0 / 0.6 - 0.9 cm LVPW Diastolic Thickness 1.0 cm 0.6 - 1.0 / 0.6 - 0.9 cm LV Relative Wall Thickness 0.5 RV Internal Dim ED PLAX 3.3 cm LVOT Diameter 2.1 cm LA Systolic Diameter LX 3.2 cm 3.0 - 4.0 / 2.7 - 3.8 cm LV Ejection Fraction MOD 4C 72.2 % LV Cardiac Index MOD 4C 3693.6 cm/minm LV Ejection Fraction 4C AL 74.2 % LV Cardiac Index 4C AL 3951.8 cm/minm M-MODE Aortic Root Diameter MM 3.0 cm LA Systolic Diameter MM 3.5 cm LA Ao Ratio MM 1.2 AV Cusp Separation MM 2.1 cm DOPPLER AV Peak Velocity 136.0 cm/s AV Peak Gradient 7.4 mmHg LVOT Peak Velocity 101.0 cm/s LVOT Peak Gradient 4.1 mmHg AV Area Cont Eq pk 2.6 cm MV Area PHT 3.9 cm Mitral E Point Velocity 60.2 cm/s Mitral A Point Velocity 83.4 cm/s Mitral E to A Ratio 0.7 LV E' Lateral Velocity 11.5 cm/s Mitral E to LV E' Lateral Ratio 5.2 LV E' Septal Velocity 5.7 cm/s Mitral E to LV E' Septal Ratio 10.7 PV Peak Velocity 88.2 cm/s PV Peak Gradient 3.1 mmHg FINDINGS LEFT VENTRICLE The left ventricular systolic function is hyperdynamic with an estimated ejection fraction in the ra nge of 65- 70%. Normal left ventricular size. Wall thickness is normal. No regional wall motion abnormalities are present. Doppler parameters are consistent with impaired left ventricular relaxtion (grade 1 diastolic dysfun ction). RIGHT VENTRICLE Normal right ventricular size and systolic function. LEFT ATRIUM The left atrial size is normal. RIGHT ATRIUM The right atrial size is normal. ATRIAL SEPTUM Normal atrial septal thickness AORTA The aortic root and proximal ascending aorta are normal in size on limited imaging. MITRAL VALVE Structurally normal mitral valve. No mitral valve stenosis or regurgitation. AORTIC VALVE Trileaflet aortic valve. No aortic valve stenosis or regurgitation. TRICUSPID VALVE Structurally normal tricuspid valve. There is trace tricuspid valve regurgitation. No tricuspid valve stenosis. PULMONARY VALVE The pulmonary valve is not well visualized. VESSELS The inferior vena cava is normal in size. PERICARDIUM No pericardial effusion. Denny Tovar DO (Electronically Signed) Final Date:26 August 2017 19:57
[2017-08-27 00:04] VITALS: BP 151/88; PULSE 63; RESP 16; TEMP 98.4; O2SAT 100
[2017-08-27 01:05] VITALS: PULSE 60
[2017-08-27 04:08] VITALS: BP 160/94; PULSE 63; RESP 16; TEMP 98.7; O2SAT 100
[2017-08-27 08:06] VITALS: BP 135/90; PULSE 69; RESP 18; TEMP 98.3; O2SAT 98
--- NOTE | 2017-08-27 08:53 | HHI.PR ---
Subjective Remarks Follow up for TIA. The patient reports feeling back to baseline. Denies any further numbness/weakness. Denies any headache, lightheadedness, dizziness, visual changes, speech deficit, chest pain, palpitations, shortness of breath, or abdominal complaints. He states he was taking aspirin up until 1 week ago when he took himself off of it because he felt like he was on too many medications. He follows with draw in hand Dr. Hogan for his fatty liver and has an upcoming appointment. He also follows with catalogue compiler Dr. Oliver. Objective Vitals Vital Signs Date Time Temp Pulse Resp B/P (MAP) Pulse Ox O2 Delivery O2 Flow Rate FiO2 08/27/17 08:06 98.3 69 18 135/90 (105) 98 08/27/17 04:08 98.7 63 16 160/94 (116) 100 08/27/17 01:05 60 08/27/17 00:04 98.4 63 16 151/88 (109) 100 08/26/17 21:34 98.4 64 20 161/84 (109) 100 08/26/17 20:19 95 08/26/17 20:17 96 08/26/17 16:19 98.4 86 18 162/79 (106) 95 08/26/17 15:00 82 08/26/17 13:18 98.2 84 18 155/83 (107) 97 08/26/17 11:00 97.9 75 18 150/84 (106) 97 I/O 08/26/17 08/26/17 08/26/17 08/27/17 08/27/17 08/27/17 07:00 15:00 23:00 07:00 15:00 23:00 Output Total 1400 ml Balance -1400 ml Output Urine Total 1400 ml Result Diagram: 08/26/17 0658 08/26/17 0658 Imaging Last Impressions Neck CTA 08/25/172008 Signed Impressions: Service Date/Time: August 20:20 - CONCLUSION: Normal examination for a patient of this age. Asher Peraza MD Head CTA 08/25/172008 Signed Impressions: Service Date/Time: August 20:20 - CONCLUSION: Normal examination for a patient of this age. Asher Peraza MD Head CT 08/25/17 0000 Signed Impressions: Service Date/Time: August 20:15 - CONCLUSION: Normal examination for a patient of this age. Asher Peraza MD Objective Remarks GENERAL: Well-nourished, well-developed male patient in NAD. SKIN: Warm and dry. No rash. HEENT: Normocephalic. Atraumatic.Pupils equal and round. Mucous membranes pink and moist. CARDIOVASCULAR: Regular rate and rhythm. No murmur appreciated. RESPIRATORY: No accessory muscle use. Clear to auscultation. Breath sounds equal bilaterally. GASTROINTESTINAL: Abdomen soft, non-tender, nondistended. Normoactive bowel sounds x4. MUSCULOSKELETAL: No obvious deformities. Extremities without clubbing, cyanosis , or edema. NEUROLOGICAL: Awake and alert. No obvious cranial nerve deficits. Motor grossly within normal limits. 5/5 muscle strength in bilateral upper and lower extremities. Normal speech. PSYCHIATRIC: Appropriate mood and affect; insight and judgment normal. Medications and IVs Current Medications Medications (Trade) Dose Ordered Sig/Ann-Marie Route Start Time Stop Time Status Last Admin (Ecotrin Ec) 325 mg DAILY PO 08/25/17 21:00 08/27/17 10:08 (NS Flush) 2 ml UNSCH PRN IV FLUSH 08/25/17 22:45 (NS Flush) 2 ml BID IV FLUSH 08/26/17 09:00 08/27/17 10:08 (Narcan Inj) 0.4 mg UNSCH PRN IV PUSH 08/25/17 22:45 (Romazicon Inj) 0.2 mg Q1M PRN IV PUSH 08/25/17 22:45 (Ativan) 1 mg Q4H PRN PO 08/25/17 22:45 (Ativan Inj) 1 mg Q4H PRN IV PUSH 08/25/17 22:45 (Ativan) 2 mg Q2H PRN PO 08/25/17 22:45 (Ativan Inj) 2 mg Q2H PRN IV PUSH 08/25/17 22:45 (Ativan Inj) 2 mg Q1H PRN IV PUSH 08/25/17 22:45 (Ativan Inj) 2 mg Q15M PRN IV PUSH 08/25/17 22:45 Dextrose/Sodium Chloride 1,000 ml @ 70 mls/hr [id number] IV 08/26/17 05:30 08/26/17 05:38 (D50w (Vial) Inj) 50 ml UNSCH PRN IV PUSH 08/26/17 05:30 (Glucagon Inj) 1 mg UNSCH PRN OTHER 08/26/17 05:30 (Lactulose Liq) 30 ml DAILY PO 08/26/17 10:00 08/26/17 10:15 A/P Assessment and Plan 66-year-old male with history of diabetes, hypertension, Larson, prostate cancer, fatty liver, hyperlipidemia, St. Eyad spine stimulator for pain, presented as a stroke alert with acute onset of right sided hemiparesis and aphasia. TIA: Patient presented with acute onset aphasia and right hemiparesis. Stroke alert was called, patient's symptoms improved therefore TPA was not administered. -Etoh level 295 upon arrival and UDS positive for cannabinoids, possibly contributing to symptoms. -Head CT, head/neck CTA images reviewed and unremarkable -Unable to have MRI due to spinal stimulator (patient also reports severe claustrophobia and would be unable to tolerate MRI) -given full strength aspirin -Echocardiogram showed EF 65-70%, grade 1 diastolic dysfunction -EEG normal -Neuro checks, NIHSS, monitor on telemetry -Consult PT, no PT needed at discharge -Holter monitor to be placed before discharge -Lipid panel with LDL 81, unable to start aspirin due to elevated LFTs, recommend repeat outpatient LFTs and follow up with draw in hand Dr. Hogan to discuss statin therapy -Neurology consulted, discussed with Dr. Thrasher on 08/27, cleared for discharge on baby aspirin with outpatient f/up -Symptoms resolved, stable for discharge Diabetes: chronic -monitor accu-checks and cover with SSI Hyperlipidemia: chronic -continue patient's ezetimibe -recommended statin therapy however LFTs elevated, discussed patient to repeat LFTs and f/up with Dr. Hogan All other medical conditions stable, continue home medications as appropriate. DVT Prophylaxis: teds/SCDs Discharge Planning Discharge patient to home Condition on discharge: Improved Heart Healthy/Diabetic Diet as tolerated Ad Inga activity Rx written: aspirin 81mg daily Follow-up with primary care physician Dr. Mondragon, GI Dr. Hogan, Agribusiness Professor Dr. Oliver, and Neurology Naz Murphy PA-C Aug 27, 2017 8:53 am
[2017-08-27] MEDS: LACTULOSE SYRUP 20 GM/30 ML CUP PO SCH (09:00)
[2017-08-27] MEDS: SODIUM CHLORIDE 0.9% FLUSH 10 ML FLUSH IV FLUSH SCH (10:08)
[2017-08-27] MEDS: ASPIRIN EC 325 MG TABEC PO SCH (10:08)
[2017-08-27] MEDS ORDERED: ASPI81TA23 PO (10:28)
--- NOTE | 2017-08-27 10:30 | HHI.DCPOC ---
Discharge Care Plan Diagnosis: (1) TIA (transient ischemic attack) Goals to Promote Your Health * To prevent worsening of your condition and complications * To maintain your health at the optimal level Directions to Meet Your Goals Take your medications as prescribed Follow your dietary instruction Follow activity as directed Keep your appointments as scheduled Take your immunizations and boosters as scheduled If your symptoms worsen call your PCP, if no PCP go to Urgent Care Center or Emergency Room Smoking is Dangerous to Your Health. Avoid second hand smoke Call the 24-hour hour crisis hotline for domestic abuse at Naz Sanchez PA-C Aug 27, 2017 10:30 am
[2017-08-27 11:03] LABS: AUTOMATED NEUTROPHIL # 2.2 TH/MM3 (1.8-7.7); BASOPHIL % 0.6 % (0.0-2.0); EOSINOPHIL % 0.5 % (0.0-4.0); HEMATOCRIT 41.9 % (39.0-51.0); HEMOGLOBIN 14.1 GM/DL (13.0-17.0); LYMPH % 29.5 % (9.0-44.0); LYMPHOCYTE # 1.2 TH/MM3 (1.0-4.8); MEAN CELL VOLUME 99.7 FL (80.0-100.0); MEAN CORPUSCULAR HEMOGLOBIN 33.7 PG (27.0-34.0); MEAN CORPUSCULAR HGB CONC 33.8 % (32.0-36.0); MEAN PLATELET VOLUME 11.1 FL (7.0-11.0); MONO % 13.4 % (0.0-8.0); MONOCYTE # 0.5 TH/MM3 (0-0.9); PLATELET COUNT 109 TH/MM3 (150-450); RED CELL DISTRIBUTION WIDTH 16.1 % (11.6-17.2); WHITE BLOOD COUNT 3.9 TH/MM3 (4.0-11.0)
[2017-08-27 11:31] LABS: ALBUMIN 2.5 GM/DL (3.4-5.0); ALKALINE PHOSPHATASE 142 U/L (45-117); ALT (GPT) 82 U/L (12-78); AST (GOT) 135 U/L (15-37); BICARBONATE 28.1 MEQ/L (21.0-32.0); BLOOD UREA NITROGEN 9 MG/DL (7-18); CALCIUM 8.1 MG/DL (8.5-10.1); CHLORIDE 103 MEQ/L (98-107); CREATININE 0.76 MG/DL (0.60-1.30); GLOMERULAR FILTRATION RATE 125 ML/MIN (>89); GLUCOSE,RANDOM 149 MG/DL (74-106); SODIUM (NA) 141 MEQ/L (136-145); TOTAL BILIRUBIN ADULT 1.3 MG/DL (0.2-1.0); TOTAL PROTEIN 7.3 GM/DL (6.4-8.2)
[2017-08-27 12:08] VITALS: BP 166/101; PULSE 87; RESP 18; TEMP 97.4; O2SAT 99
[2017-08-29 11:39] LABS: ANA PATTERN DIFFUSE
--- NOTE | 2017-08-30 00:33 | HM ---
Date Performed: 08/28/2017 Time Performed: 11:46:00 HOOKUP DATE: 08/28/17 11:46:00 AM Sun ANALYSIS START TIME: 08/28/2017 11:51:00 AM ANALYSIS END TIME: 08/29/2017 11:21:10 AM PATIENT AGE: 66 PATIENT HEIGHT PATIENT WEIGHT DRUG LIST PATIENT DIAGNOSIS: stroke alert TEST NARRATIVE: The patient's average heart rate was 77 BPM. Heart rates greater than 120 B PM were noted 1% of the time. No episodes of bradycardia were noted. No pauses exceeding 2.0 sec onds were noted. 16 ventricular ectopics, which represented < 1% of the total beat count, were no breann. The highest ventricular ectopic frequency occurred from 04:00 PM to 05:00 PM Sun. During this time 6 VE(s) occurred. Ventricular ectopics were observed as 16 isolated beat(s) only. No couplets or runs were noted. Some of the ventricular beats occurred in bigeminal cycles. 1 supraventricul ar ectopics, which represented < 1% of the total beat count, were noted. The highest supraventricula r ectopic frequency occurred from 09:00 PM to 10:00 PM Sun. During this time 1 SVE(s) occurred. No episodes of ST depression (defined as -1.0 mm or more) were noted in channel 1. No episodes of ST depression (defined as -1.0 mm or more) were noted in channel 2. No episodes of ST depression (defi aminta as -1.0 mm or more) were noted in channel 3. TEST INTERPRETATION: Sinus rhythm SINUS TACHYCARDIA RARE PVCs NO PAUSE NO VENTRICULAR TACHYCARDIA THERE IS NO ENTRY IN THE DIARY Signed by : Raad Brandon
[2017-08-31 11:07] LABS: METHYLMALONIC ACID 0.11 nmol/mL (<=0.40)
== END 2017-08-27 16:22 | disposition home or self-care (01) ==
LOC: NEPC 20:04 → NEDA 22:40 → MERGE 22:40 → NEPHCDU 08-26 00:10
PROVIDERS: ADMIT Family Medicine; ATTEND Family Medicine
DX: G45.9 Transient cerebral ischemic attack, unspecified (principal); F10.929 Alcohol use, unspecified with intoxication, unspecified; Y90.8 Blood alcohol level of 240 mg/100 ml or more; R47.01 Aphasia; R29.810 Facial weakness; C61 Malignant neoplasm of prostate; E11.649 Type 2 diabetes mellitus with hypoglycemia without coma; I10 Essential (primary) hypertension; K76.0 Fatty (change of) liver, not elsewhere classified; F17.200 Nicotine dependence, unspecified, uncomplicated; Z79.899 Other long term (current) drug therapy; Z79.4 Long term (current) use of insulin; R94.31 Abnormal electrocardiogram [ECG] [EKG]; R41.82 Altered mental status, unspecified; E78.5 Hyperlipidemia, unspecified; F40.240 Claustrophobia; M32.9 Systemic lupus erythematosus, unspecified; F12.90 Cannabis use, unspecified, uncomplicated; R00.0 Tachycardia, unspecified; I49.3 Ventricular premature depolarization
CPT/HCPCS: 51702; 70450; 70496; 70498; 80048; 80053; 80061; 80307; 81001; 82140; 82550; 82607; 82948; 83921; 84425; 84439; 84443; 84450; 84460; 84484; 85025; 85384; 85610; 85652; 85730; 86038; 86039; 86140; 86430; 86592; 93005; 93225; 93226; 93306; 95819; 96360; 96361; 97161; 99291; G0378; G8987; G8988; J7030; J7042; Q9967